=== PATIENT | male | born 2000 | race Caucasian/White ===

== ENCOUNTER 2020-08-22 08:26 | Outpatient (REF) | payer MEDICAID, SELFPAY | END 2020-08-22 08:27 | disposition home or self-care (01) | LOC: HO.HMGCLDS 08:26 | PROVIDERS: Visit Provider Internal Medicine | DX: Z20.828 Contact with and (suspected) exposure to other viral communicable diseases (principal) | CPT/HCPCS: C9803; U0003 ==

== ENCOUNTER 2020-09-01 09:19 | Outpatient (REF) | payer MEDICAID, SELFPAY | END 2020-09-01 09:20 | disposition home or self-care (01) | LOC: HO.HMGCLDS 09:19 | PROVIDERS: Visit Provider Internal Medicine | DX: Z20.828 Contact with and (suspected) exposure to other viral communicable diseases (principal) | CPT/HCPCS: U0003 ==

== ENCOUNTER 2020-10-10 09:15 | Outpatient (REF) | payer MEDICAID, SELFPAY | END 2020-10-10 09:16 | disposition home or self-care (01) | LOC: HO.HMGCLDS 09:15 | PROVIDERS: Visit Provider Internal Medicine | DX: Z20.822 Contact with and (suspected) exposure to COVID-19 (principal) | CPT/HCPCS: 36415; C9803; U0003 ==

== ENCOUNTER 2022-04-12 15:41 | Outpatient (REF) | payer MEDICAID, SELFPAY ==
--- NOTE | ~2022-04-12 | XR_ITS ---
EXAMINATION: XR ANKLE, RIGHT CLINICAL INFORMATION: Right ankle injury. COMPARISON: None TECHNIQUE: AP, lateral, and mortise views of the right ankle. An indicator arrow points to the medial malleolus. FINDINGS: The ankle joint and mortise are intact. The tarsal bones are normally aligned. There is mild soft tissue swelling. XR/XR ankle RT min 3V IMPRESSION: Mild soft tissue swelling without acute underlying osseous abnormality.
== END 2022-04-12 15:42 | disposition home or self-care (01) ==
LOC: HO.XRAY 15:41
PROVIDERS: PCP Internal Medicine; Visit Provider Student in an Organized Health Care Education/Training Program
DX: S99.911A Unspecified injury of right ankle, initial encounter (principal)
CPT/HCPCS: 73610